=== PATIENT | female | born 1965 | race Caucasian/White ===

== ENCOUNTER → 2017-03-03 | Outpatient (CLI) | payer OTHER ==
[~2017-03-03] MED LIST: CATHETER FLUSH 10 ML SYR IV PRN
[2017-03-03 13:19] VITALS: BP 148/60
[2017-03-03 13:22] VITALS: BP 162/80
[2017-03-03 13:26] VITALS: BP 174/88
[2017-03-03 13:29] VITALS: BP 146/70
--- NOTE | 2017-03-04 13:36 | STRESS TEST ---
DATE OF SERVICE: 03/03/2017 Resting and post-exercise Technetium-99m Tetrofosmin SPECT CT imaging ORDERING PHYSICIAN: Dr. Jaeger. CLINICAL DIAGNOSIS: Chest discomfort. Baseline images were carried out after injection of 9.53 mCi of Technetium-99m Tetrofosmin. This was followed by exercise on a treadmill. Geoff protocol was employed. She completed 6 minutes in the Geoff protocol. She attained 7.3 mets of workload and 99% of maximum predicted heart rate. Heart rate and blood pressure responses to exercise were normal. Exercise was stopped on account of fatigue. There was no significant arrhythmia. In the immediate postexercise phase, there is approximately 0.5 to [address] segment depression. Review of images at rest and following stress does not indicate any significant perfusion defects consistent with myocardial ischemia or infarction. Gated images show normal global left ventricular systolic function with normal regional wall motion. Left ventricular ejection fraction is calculated to be 74%. Left ventricular end diastolic volume is 44 mL. TID is absent (1). CONCLUSIONS: 1. No evidence of significant myocardial ischemia or infarction on this study. 2. Low exercise capacity. 3. Normal global left ventricular systolic function with ejection fraction of 74%. 4. No regional wall motion abnormality. 5. Normal left ventricular cavity size. Job ID: [id number] DocumentID: [id number] Dictated Date: 03/04/2017 09:29:37 Climbing Guide Date: 03/04/2017 10:14:39 Dictated By: WADE JAEGER MD, MA, FACP, FACC,
== END ==
LOC: CARD 11:02
PROVIDERS: ATTEND Internal Medicine Cardiovascular Disease
DX: I80.292 Phlebitis and thrombophlebitis of other deep vessels of left lower extremity (principal); R06.02 Shortness of breath; R00.2 Palpitations; R07.89 Other chest pain
CPT/HCPCS: 78452; 93017

== ENCOUNTER → 2017-03-04 | Outpatient (CLI) | payer OTHER | LOC: CARD 12:25 → EDUNIT# 12:45 | PROVIDERS: ATTEND Internal Medicine Cardiovascular Disease | DX: R07.89 Other chest pain (principal); R00.2 Palpitations; R06.02 Shortness of breath; I82.402 Acute embolism and thrombosis of unspecified deep veins of left lower extremity | CPT/HCPCS: 93225; 93226 ==

== ENCOUNTER → 2017-03-04 | Outpatient (CLI) | payer OTHER | LOC: CARD 11:57 → EDUNIT# 12:00 | PROVIDERS: ATTEND Internal Medicine Cardiovascular Disease | DX: R07.89 Other chest pain (principal); R00.2 Palpitations; R06.02 Shortness of breath; I82.402 Acute embolism and thrombosis of unspecified deep veins of left lower extremity | CPT/HCPCS: 93306 ==

== ENCOUNTER → 2017-03-12 | Outpatient (CLI) | payer OTHER ==
--- NOTE | 2017-03-12 15:17 | Diagnostic Imaging Report ---
PROCEDURE: US left lower extremity venous. TECHNIQUE: Multiple real-time grayscale images were obtained over the left lower extremity in various projections. Additional duplex Doppler and color Doppler images were also obtained. INDICATION: Left leg pain. EXAMINATION: Grayscale and color Doppler evaluation of the deep veins of the left lower extremity were performed with waveform analysis. FINDINGS: Continuous venous flow is present. No intraluminal filling defect is identified. There is normal compressibility and response to augmentation. No abnormal perivascular fluid collection is identified. IMPRESSION: No ultrasound evidence of left lower extremity deep venous thrombosis. Dictated by: Dictated on workstation # [id number]
== END ==
LOC: RAD 14:45
PROVIDERS: ATTEND Internal Medicine Cardiovascular Disease
DX: M79.662 Pain in left lower leg (principal); Z72.0 Tobacco use; Z86.39 Personal history of other endocrine, nutritional and metabolic disease; R06.02 Shortness of breath; R07.89 Other chest pain; R00.2 Palpitations

== ENCOUNTER 2017-06-28 12:39 | Emergency (ER) | payer SELFPAY ==
[~2017-06-28] VITALS: Ht 162.6 cm; Wt 88.5 kg
[2017-06-28] MEDS ORDERED: PROP60TA17 (13:12)
[2017-06-28] MEDS ORDERED: ALPR0.5T7 (13:12)
[2017-06-28] MEDS ORDERED: LISI-556 PO (13:12)
[2017-06-28] MEDS ORDERED: ACET1TAB45 (13:12)
[2017-06-28] MEDS ORDERED: RIVA20TA PO (13:12)
[2017-06-28] MEDS ORDERED: PROP60CA (13:12)
[2017-06-28] MEDS ORDERED: NS IV 1000 ML 1,000 ML IV ONE (13:23)
[2017-06-28] MEDS ORDERED: ONDANSETRON 4 MG/2 ML (SDV) Z0FRAN IVP ONE (13:30)
[2017-06-28 13:46] LABS: BILIRUBIN,URINE NEGATIVE (NEGATIVE); KETONES,URINE NEGATIVE (NEGATIVE); LEUKOCYTE ESTERASE ,URINE 1+ (NEGATIVE); NITRITE,URINE NEGATIVE (NEGATIVE); PH,URINE 5 (5-9); PROTEIN,URINE NEGATIVE (NEGATIVE); UROBILINOGEN,URINE NORMAL (NORMAL)
[2017-06-28 13:53] LABS: SQUAMOUS EPITHELIAL CELL,UR 25-50 /HPF
[2017-06-28 13:57] LABS: BASOPHILS % (AUTO) 0 % (0-10); EOSINOPHILS # (AUTO) 0.2 10^3/uL (0.0-0.3); EOSINOPHILS % (AUTO) 3 % (0-10); LYMPHOCYTES # (AUTO) 3.6 X 10^3 (1.0-4.0); LYMPHOCYTES % (AUTO) 51 % (12-44); MEAN CORPUSCULAR HEMOGLOBIN 27 PG (25-34); MEAN CORPUSCULAR HGB CONC 33 G/DL (32-36); MEAN CORPUSCULAR VOLUME 81 FL (80-99); MEAN PLATELET VOLUME 10.9 FL (7.4-10.4); MONOCYTES # (AUTO) 0.4 X 10^3 (0.0-1.0); MONOCYTES % (AUTO) 5 % (0-12); NEUTROPHILS # (AUTO) 2.9 X 10^3 (1.8-7.8); NEUTROPHILS % (AUTO) 41 % (42-75); PLATELET COUNT 296 10^3/uL (130-400); RED BLOOD COUNT 4.96 10^6/uL (4.35-5.85); RED CELL DISTRIBUTION WIDTH 17.7 % (10.0-14.5)
--- NOTE | 2017-06-28 14:01 | ED General ---
General Chief Complaint: Abdominal/GI Problems Stated Complaint: NAUSEA/ABD PAIN Nursing Triage Note: AMB TO ROOM REPORTS THAT SHE VOMITED X2 YESTERDAY WITH NAUSEA TODAY WAS LYING ON HER BACK AND PALPATING R UPPER QUAD FELT TENDER AREA . WHEN PALPATING. NO VOMITING TODAY. Nursing Sepsis Screen: No Definite Risk Source of Information: Patient Exam Limitations: No Limitations History of Present Illness Time Seen by Provider: 13:05 Initial Comments This 52-year-old woman presents to the emergency room with complaints of nausea and vomiting since yesterday. She vomited a couple times yesterday and today has persistent nausea without vomiting. She has been consuming only liquids today. She complains of a lump under her rib margins on the right that is tender to palpation. She reports recent constipation which she believes is improving as she has had 2 bowel movements yesterday and 2 bowel movements today. She denies any fevers. She feels fatigued today. She recently moved to the area from [place]. She is seeing Heydi Roldan at [facility]. 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 Patient reports she has not been on several of her medications as she recently moved here and is transitioning medicated from one state to another. Allergies and Home Medications Allergies Coded Allergies: acetaminophen (Verified Allergy, Unknown, 06/28/17) buprenorphine (Verified Allergy, Unknown, 06/28/17) diclofenac (Verified Allergy, Unknown, 06/28/17) hydrocodone (Verified Allergy, Unknown, 06/28/17) sumatriptan (Verified Allergy, Unknown, 06/28/17) Uncoded Allergies: GULTEN (Adverse Reaction, Unknown, 06/28/17) Home Medications Acetaminophen with Codeine 1 Each Tablet, (Reported) Alprazolam 0.5 Mg Tablet, (Reported) Lisinopril 5 Mg Tablet, 5 MG PO DAILY, (Reported) Propranolol HCl 60 Mg Tablet, (Reported) Propranolol HCl 60 Mg Cap.sa.24h, (Reported) Rivaroxaban 20 Mg Tablet, 20 MG PO DAILY, (Reported) Constitutional: see HPI EENTM: no symptoms reported Respiratory: no symptoms reported Cardiovascular: no symptoms reported Gastrointestinal: see HPI Genitourinary: no symptoms reported : No Musculoskeletal: no symptoms reported Skin: no symptoms reported Psychiatric/Neurological: No Symptoms Reported Hematologic/Lymphatic: No Symptoms Reported Past Ntifgzu-Wvjnkz-Pkjjov Hx Patient Social History Alcohol Use: Denies Use Recreational Drug Use: No Smoking Status: Current Everyday Smoker Recent Foreign Travel: No Contact w/Someone Who Travel: No Recent Infectious Disease Expo: No Surgeries History of Surgeries: Yes Surgeries: Hysterectomy Respiratory History of Respiratory Disorde: No Cardiovascular History of Cardiac Disorders: Yes (tachycardia) Cardiac Disorders: Deep Vein Thrombosis, High Cholesterol, Hypertension Neurological History of Neurological Disord: No Genitourinary History of Genitourinary Disor: Yes Genitourinary Disorders: UTI-Chronic Musculoskeletal History of Musculoskeletal Dis: Yes Musculoskeletal Disorders: Fibromyalgia, Chronic Back Pain Endocrine History of Endocrine Disorders: Yes (jerod syndrome) Cancer History of Cancer: No Psychosocial History of Psychiatric Problem: Yes Behavioral Health Disorders: Depression Physical Exam Vital Signs Vital Sign - Last 12Hours 06/28/17 12:58 Temp 98.3 Pulse 93 Resp 18 B/P (MAP) 148/93 (111) Pulse Ox 98 O2 Delivery Room Air Capillary Refill : Less Than 3 Seconds General Appearance: No Apparent Distress, WD/WN HEENT: PERRL/EOMI, Normal ENT Inspection Neck: Normal Inspection Respiratory: Lungs Clear, Normal Breath Sounds, No Accessory Muscle Use, No Respiratory Distress Cardiovascular: Regular Rate, Rhythm, No Edema, No Murmur Gastrointestinal: Normal Bowel Sounds, Soft, Mass (there is a palpable mass in the right upper quadrant extending to the epigastrium with mild tenderness suspicious for transverse colon with heavy stool burden), Tenderness (mild in the epigastrium and right upper quadrant) Extremity: Normal Inspection, No Pedal Edema Neurologic/Psychiatric: Alert, Oriented x3, No Motor/Sensory Deficits, Normal Mood/Affect, fibreglass gun hand II-XII Norm as Tested Skin: Normal Color, Warm/Dry Progress/Results/Core Measures Suspected Sepsis Recent Fever Within 48 Hours: No Infection Criteria Present: None New/Unexplained Altered Menta: No Sepsis Screen: No Definite Risk Sepsis Diagnosis: SIRS Temperature:98.3 Pulse: 93 Respiratory Rate: 18 Laboratory Tests 06/28/17 13:48: White Blood Count 7.0 Blood Pressure 148 /93 Mean: 111 Laboratory Tests 06/28/17 13:48: Creatinine 0.78, Platelet Count 296, Total Bilirubin 0.5 Results/Orders Lab Results Laboratory Tests Test 06/28/17 13:40 06/28/17 13:48 Range/Units Urine Color YELLOW Urine Clarity SLIGHTLY CLOUDY Urine pH 5 5-9 Urine Specific [place] 1.025 H 1.016-1.022 Urine Protein NEGATIVE NEGATIVE Urine Glucose (UA) NEGATIVE NEGATIVE Urine Ketones NEGATIVE NEGATIVE Urine Nitrite NEGATIVE NEGATIVE Urine Bilirubin NEGATIVE NEGATIVE Urine Urobilinogen NORMAL NORMAL MG/DL Urine Leukocyte Esterase 1+ H NEGATIVE Urine RBC (Auto) 3+ H NEGATIVE Urine RBC 2-5 H /HPF Urine WBC NONE /HPF Urine Squamous Epithelial Cells 25-50 H /HPF Urine Crystals NONE /LPF Urine Bacteria TRACE /HPF Urine Casts NONE /LPF Urine Mucus NEGATIVE /LPF Urine Culture Indicated NO White Blood Count 7.0 4.3-11.0 10^3/uL Red Blood Count 4.96 4.35-5.85 10^6/uL Hemoglobin 13.2 11.5-16.0 G/DL Hematocrit 40 35-52 % Mean Corpuscular Volume 81 80-99 FL Mean Corpuscular Hemoglobin 27 25-34 PG Mean Corpuscular Hemoglobin Concent 33 32-36 G/DL Red Cell Distribution Width 17.7 H 10.0-14.5 % Platelet Count 296 130-400 10^3/uL Mean Platelet Volume 10.9 H 7.4-10.4 FL Neutrophils (%) (Auto) 41 L 42-75 % Lymphocytes (%) (Auto) 51 H 12-44 % Monocytes (%) (Auto) 5 0-12 % Eosinophils (%) (Auto) 3 0-10 % Basophils (%) (Auto) 0 0-10 % Neutrophils # (Auto) 2.9 1.8-7.8 X 10^3 Lymphocytes # (Auto) 3.6 1.0-4.0 X 10^3 Monocytes # (Auto) 0.4 0.0-1.0 X 10^3 Eosinophils # (Auto) 0.2 0.0-0.3 10^3/uL Basophils # (Auto) 0.0 0.0-0.1 10^3/uL Sodium Level 142 135-145 MMOL/L Potassium Level 4.1 3.6-5.0 MMOL/L Chloride Level 108 H 98-107 MMOL/L Carbon Dioxide Level 21 21-32 MMOL/L Anion Gap 13 5-14 MMOL/L Blood Urea Nitrogen 10 7-18 MG/DL Creatinine 0.78 0.60-1.30 MG/DL Estimat Glomerular Filtration Rate > 60 BUN/Creatinine Ratio 13 Glucose Level 90 70-105 MG/DL Calcium Level 9.5 8.5-10.1 MG/DL Total Bilirubin 0.5 0.1-1.0 MG/DL Aspartate Amino Transf (AST/SGOT) 19 5-34 U/L Alanine Aminotransferase (ALT/SGPT) 11 0-55 U/L Alkaline Phosphatase 91 40-136 U/L Total Protein 7.4 6.4-8.2 GM/DL Albumin 4.3 3.2-4.5 GM/DL Lipase 60 8-78 U/L My Orders Orders - BRITTANY OG MD Cbc With Automated Diff (06/28/17 13:23) Comprehensive Metabolic Panel (06/28/17 13:23) Ua Culture If Indicated (06/28/17 13:23) Abdomen, Flat & Upright/Decub (06/28/17 13:23) Saline Lock/Iv-Start (06/28/17 13:23) Lipase (06/28/17 13:23) Ns Iv 1000 Ml (Sodium Chloride 0.9%) (06/28/17 13:23) Ondansetron Injection (Zofran Injectio (06/28/17 13:30) Rx-Ondansetron Po (Rx-Zofran Po) (06/28/17 15:19) Medications Given in ED Current Medications Medications Dose Ordered Sig/Nick Route Start Time Stop Time Status Last Admin Dose Admin Ondansetron HCl 4 mg ONCE ONCE IVP 06/28/17 13:30 06/28/17 13:31 DC 06/28/17 13:45 4 MG Sodium Chloride 1,000 ml @ 0 mls/hr Q0M ONCE IV 06/28/17 13:23 06/28/17 13:26 DC 06/28/17 13:45 1,000 MLS/HR Vital Signs/I&O Vital Sign - Last 12Hours 06/28/17 12:58 Temp 98.3 Pulse 93 Resp 18 B/P (MAP) 148/93 (111) Pulse Ox 98 O2 Delivery Room Air Capillary Refill : Less Than 3 Seconds Blood Pressure Mean: 111 Progress Note : Progress Note Patient received a liter of IV fluids and Zofran. Workup was unremarkable except for constipation on the x-ray. Palpable mass on abdominal exam was consistent with stool in the transverse colon. Diagnostic Imaging Diagonstic Imaging: Xray Plain Films/CT/US/NM/MRI: abdomen, pelvis Comments KUB and upright x-ray viewed by me and report reviewed. See report below: NAME: GISELLE SANDOVAL [facility] REC#: [id number] PT STATUS: REG ER : 1965 PHYSICIAN: BRITTANY OG MD ADMIT DATE: 06/28/17/ER Signed Date of Exam:06/28/17 ABDOMEN, FLAT UPRIGHT/DECUB EXAM: ABDOMEN, FLAT UPRIGHT/DECUB INDICATION: Vomiting. Right upper quadrant tenderness. COMPARISON: None. FINDINGS: Large amount of stool throughout the colon and rectum. Nonspecific small bowel gas pattern. No acute osseous findings. IMPRESSION: Large amount of stool throughout the colon and rectum consistent with constipation. Dictated by: Dictated on workstation # [id number] Dict: 06/28/17 1357 Trans: 06/28/17 1429 MIN [id number] Interpreted by: JULIO OVIEDO MD Electronically signed by: JULIO OVIEDO MD 06/28/17 1429 Departure Impression Impression: Primary Impression: Constipation Qualified Codes: K59.00 - Constipation, unspecified Additional Impressions: Nausea Right upper quadrant pain Disposition: 01 HOME, SELF-CARE Condition: Improved Departure-Patient Inst. Decision time for Depature: 15:00 Referrals: [facility] (PCP) Primary Care Physician LAMRA SPAIN APRN (Family) Primary Care Physician Patient Instructions: Acute Abdomen (Belly Pain), Adult (DC), Constipation, Adult (DC) Add. Discharge Instructions: Drink plenty of clear liquids. Use your MiraLAX (polyethylene glycol) 2 or 3 times a daily until you produce a couple of good bowel movements, and then use as needed. Fill the cap to the fill line and dissolve in 8-12 ounces of fluid. Consume primarily a clear liquid diet until you produce a couple of good bowel movements. Then gradually advance your diet as tolerated. Eat a diet high in fruits, vegetables, and whole grains. Avoid excessive meats, cheeses, fast foods, and processed foods as they may worsen constipation. Follow-up with your primary care provider in the near future. Return to the emergency room if symptoms worsen. Dissolve Zofran under your tongue every 4 hours as needed for nausea. To replace your Protonix, you may use an lcuz-ucm-ctkzrrz product such as omeprazole or Pepcid (famotidine). All discharge instructions reviewed with patient and/or family. Voiced understanding. BRITTANY OG MD Jun 28, 2017 14:01
[2017-06-28 14:15] LABS: ALANINE AMINOTRANSFERASE 11 U/L (0-55); ALBUMIN 4.3 GM/DL (3.2-4.5); ANION GAP 13 MMOL/L (5-14); ASPARTATE AMINO TRANSFERASE 19 U/L (5-34); BILIRUBIN,TOTAL 0.5 MG/DL (0.1-1.0); BLOOD UREA NITROGEN 10 MG/DL (7-18); BUN/CREATININE RATIO 13; CALCIUM 9.5 MG/DL (8.5-10.1); CARBON DIOXIDE 21 MMOL/L (21-32); CHLORIDE 108 MMOL/L (98-107); CREATININE SERUM 0.78 MG/DL (0.60-1.30); GFR ESTIMATED > 60; GLUCOSE 90 MG/DL (70-105); LIPASE 60 U/L (8-78); POTASSIUM 4.1 MMOL/L (3.6-5.0); SODIUM 142 MMOL/L (135-145); TOTAL PROTEIN 7.4 GM/DL (6.4-8.2)
[2017-06-28] MEDS ORDERED: RX-ONDANSETRON 4 MG ODT (ZOFRAN) PPK #4 SL STA (15:19)
[2017-06-28 15:47] VITALS: BP 131/87
== END 2017-06-28 15:46 | disposition home or self-care (01) ==
LOC: EDUNIT# 12:39 → ER 12:41
DX: K59.00 Constipation, unspecified (principal); R11.0 Nausea; F32.9 Major depressive disorder, single episode, unspecified; E78.00 Pure hypercholesterolemia, unspecified; I10 Essential (primary) hypertension; F17.210 Nicotine dependence, cigarettes, uncomplicated; Z86.718 Personal history of other venous thrombosis and embolism
CPT/HCPCS: 36415; 74020; 80053; 81000; 83690; 85025

== ENCOUNTER → 2022-12-16 | Outpatient (CLI) | payer OTHER ==
[~2022-12-16] MED LIST changes: +ACET-17; +ALPR0.5T7; -CATHETER FLUSH 10 ML SYR IV PRN; +LISI5TAB20 PO; +PROP60CA; +PROP60TA17; +RIVA20TA2 PO
[2022-12-16 08:52] LABS: BASOPHILS % (AUTO) 0 % (0-10); EOSINOPHILS # (AUTO) 0.2 10^3/uL (0.0-0.3); EOSINOPHILS % (AUTO) 3 % (0-10); HEMATOCRIT 43 % (35-52); HEMOGLOBIN 14.7 g/dL (11.5-16.0); LYMPHOCYTES # (AUTO) 2.6 10^3/uL (1.0-4.0); LYMPHOCYTES % (AUTO) 38 % (12-44); MEAN CORPUSCULAR HEMOGLOBIN 31 pg (25-34); MEAN CORPUSCULAR HGB CONC 34 g/dL (32-36); MEAN CORPUSCULAR VOLUME 92 fL (80-99); MEAN PLATELET VOLUME 10.1 fL (9.0-12.2); MONOCYTES # (AUTO) 0.4 10^3/uL (0.0-1.0); MONOCYTES % (AUTO) 6 % (0-12); NEUTROPHILS # (AUTO) 3.7 10^3/uL (1.8-7.8); NEUTROPHILS % (AUTO) 53 % (42-75); PLATELET COUNT 236 10^3/uL (130-400); WHITE BLOOD COUNT 6.9 10^3/uL (4.3-11.0)
[2022-12-16 09:08] LABS: ALBUMIN 4.4 GM/DL (3.2-4.5); POTASSIUM 4.4 MMOL/L (3.6-5.0)
[2022-12-16 09:09] LABS: CALCIUM 9.6 MG/DL (8.5-10.1)
[2022-12-16 09:10] LABS: TOTAL PROTEIN 7.3 GM/DL (6.4-8.2)
[2022-12-16 09:12] LABS: BILIRUBIN,TOTAL 0.4 MG/DL (0.1-1.0)
[2022-12-16 09:14] LABS: CREATININE SERUM 0.83 MG/DL (0.60-1.30)
--- NOTE | 2022-12-16 09:52 | Diagnostic Imaging Report ---
INDICATION: Chest discomfort. FINDINGS: PA and lateral chest obtained at 8:34 AM. FINDINGS: The heart and mediastinal silhouette are normal in appearance. The lungs are clear. There is no pneumothorax or pleural fluid. IMPRESSION: Negative chest. Dictated by: Dictated on workstation # [id number]
== END ==
LOC: RAD 08:09
PROVIDERS: ATTEND Nurse Practitioner Family
DX: R07.89 Other chest pain (principal); R10.11 Right upper quadrant pain
CPT/HCPCS: 36415; 71046; 80053; 82150; 83690; 85025

== ENCOUNTER → 2022-12-29 | Outpatient (CLI) | payer OTHER ==
--- NOTE | 2022-12-29 08:26 | Diagnostic Imaging Report ---
PROCEDURE: US Hepatic (Liver). TECHNIQUE: Multiple real-time grayscale images were obtained over the right upper quadrant in various projections. INDICATION: Right upper quadrant pain. No relevant comparison. FINDINGS: The liver appeared nonfocal. The right kidney unobstructed. The bile ducts nondilated. The gallbladder normal. The visible portions of the pancreas unremarkable as well as the aorta and IVC. No ascites. No fluid collection. Portal vein patent and normal in directional flow. IMPRESSION: Unremarkable right upper quadrant ultrasound Dictated by: Dictated on workstation # [id number]
== END ==
LOC: RAD 07:29
PROVIDERS: ATTEND Nurse Practitioner Family
DX: R10.11 Right upper quadrant pain (principal)
CPT/HCPCS: 76705